=== PATIENT | male | born 1980 | race Caucasian/White ===

== ENCOUNTER 2023-02-22 21:45 | Emergency (ER) | payer MEDICAID ==
[~2023-02-22] VITALS: Ht 180.3 cm; Wt 118.0 kg
[~2023-02-22 21:45] MED LIST: HYOS0.1277 SL; NO HOME MEDS; OXYC-150 PO; SULF1TAB45 PO
[2023-02-22 21:55] VITALS: BP 134/86
[2023-02-23] MEDS ORDERED: TETanus/Pertussis (Acell)/Diphther VAC/PF (Tdap-Adult) 0.5ml syringe IMVAC ONE (06:15)
[2023-02-23] MEDS ORDERED: LIDOcaine 1% W/epiNEPHrine 1:100,000 20ml vial IJ ONE (06:15)
[2023-02-23] MEDS ORDERED: amox tr/potassium clavulanate 875/125mg TAB PO ONE (06:20)
[2023-02-23] MEDS ORDERED: DOXYCYCLINE 100MG CAPSULE PO STA (06:21)
[2023-02-23] MEDS ORDERED: DOXY100C43 PO (06:24)
[2023-02-23] MEDS ORDERED: METR-159 PO (06:24)
[2023-02-23] MEDS ORDERED: metroNIDAZOLE 500mg tablet PO ONE (06:25)
== END 2023-02-23 07:30 | disposition home or self-care (01) ==
LOC: ER 21:46
DX: S51.811A Laceration without foreign body of right forearm, initial encounter (principal); S61.011A Laceration without foreign body of right thumb without damage to nail, initial encounter; Z87.81 Personal history of (healed) traumatic fracture; Z85.038 Personal history of other malignant neoplasm of large intestine; Z79.2 Long term (current) use of antibiotics; Z79.899 Other long term (current) drug therapy; Z23 Encounter for immunization; W54.0XXA Bitten by dog, initial encounter; Y93.89 Activity, other specified; Y92.89 Other specified places as the place of occurrence of the external cause; Y99.8 Other external cause status
CPT/HCPCS: 12002; 90471; 90715; 99284; A6449

== ENCOUNTER 2023-07-24 02:00 | Emergency (ER) | payer MEDICAID ==
[~2023-07-24] VITALS: Ht 177.8 cm; Wt 102.1 kg
[2023-07-24 02:12] VITALS: BP 145/100; PULSE 118; RESP 18; TEMP 98.5; O2SAT 98
== END 2023-07-24 04:16 | disposition left against medical advice (07) ==
LOC: ER 02:00
DX: K08.89 Other specified disorders of teeth and supporting structures (principal); Z53.21 Procedure and treatment not carried out due to patient leaving prior to being seen by health care provider
CPT/HCPCS: 99281

== ENCOUNTER 2023-07-24 06:24 | Inpatient (IN) | payer MEDICAID ==
[~2023-07-24] VITALS: Ht 180.3 cm; Wt 118.2 kg
[2023-07-24] MEDS ORDERED: normal saline 1000ml 1,000 ML IVB ONE (07:00)
[2023-07-24] MEDS ORDERED: dexamethasone sod phosphate 10mg/ml inj IV STA (07:01)
[2023-07-24] MEDS ORDERED: albuterol 2.5 MG/3 ML nebule NEB ONE (07:05)
[2023-07-24] MEDS ORDERED: ipratropium 0.5 MG/2.5ML nebule IH ONE (07:05)
[2023-07-24 07:31] VITALS: PULSE 109; PULSE 122; RESP 12; RESP 16; O2SAT 100
[2023-07-24] MEDS: levoFLOXACIN-Levaquin 750MG/D5 150 ML IV SCH (08:18)
[2023-07-24 09:00] LABS: ALANINE AMINOTRANSFERASE 54 U/L (12-78); ALBUMIN 3.2 G/DL (3.4-5.0); ALBUMIN/GLOBULIN RATIO 0.6 (1.1-1.5); ALKALINE PHOSPHATASE 107 IU/L (46-116); ANION GAP 11 (8-16); ASPARTATE AMINO TRANSFERASE 25 U/L (10-37); BILIRUBIN,TOTAL 0.7 MG/DL (0.1-1.0); BLOOD UREA NITROGEN 16 MG/DL (7-18); CALCIUM 9.4 MG/DL (8.5-10.1); CHLORIDE 98 MMOL/L (99-107); GLUCOSE 135 MG/DL (70-104); SODIUM 136 MMOL/L (135-145); TOTAL CARBON DIOXIDE 27.2 MMOL/L (24-32); TOTAL PROTEIN 8.6 G/DL (6.4-8.2); eCRCL 63 ML/MIN; eGFR 47 ML/MIN
[2023-07-24 09:03] LABS: BASOPHILS # (AUTO) 0.1 X10'3 (0-0.2); BASOPHILS % (AUTO) 0.4 % (0-1); EOSINOPHILS % (AUTO) 0.3 % (0-6); HEMATOCRIT 44.6 % (42.0-52.0); HEMOGLOBIN 15.4 g/dl (14.0-17.9); LYMPHOCYTES # (AUTO) 1.6 X10'3 (1.1-4.8); LYMPHOCYTES % (AUTO) 11.8 % (21-51); MEAN CORPUSCULAR HEMOGLOBIN 31.3 PG (27.0-31.0); MEAN CORPUSCULAR HGB CONC 34.4 g/dL (33.0-36.5); MEAN CORPUSCULAR VOLUME 90.8 FL (78-98); MEAN PLATELET VOLUME 8.2 FL (7.4-10.4); MONOCYTES # (AUTO) 1.6 X10'3 (0-0.9); MONOCYTES % (AUTO) 11.5 % (2-12); NEUTROPHILS # (AUTO) 10.3 X10'3 (1.8-7.7); PLATELET COUNT 338 X10'3 (140-440); RED BLOOD COUNT 4.91 X10'6 (4.70-6.10); RED CELL DISTRIBUTION WIDTH 12.9 % (11.5-14.5); WHITE BLOOD COUNT 13.6 X10'3 (4.5-11.0)
[2023-07-24 09:08] LABS: MAGNESIUM 2.1 MG/DL (1.5-2.4); PRO BRAIN NATRIURETIC PEPTIDE 84 PG/ML (0-125)
[2023-07-24] MEDS ORDERED: POTASSIUM BICARB 20meq eff tab 20 MEQ TABLET.EFF PO ONE (09:20)
[2023-07-24] MEDS ORDERED: LidoCAINE 2% Topical Jelly 11mL syringe TOP ONE (11:55)
[2023-07-24] MEDS ORDERED: LIDOcaine 2% 10ml TOPICAL JELLY (Urojet) TP ONE (11:55)
[2023-07-24 12:37] LABS: BILIRUBIN,URINE NEGATIVE (Neg); CLARITY,URINE SLIGHTLY CLOUDY (Clear); COLOR,URINE YELLOW (Yellow); GLUCOSE, URINE NEGATIVE (Neg); KETONES,URINE NEGATIVE (Neg); LEUKOCYTE ESTERASE ,URINE NEGATIVE (Neg); NITRITES, URINE NEGATIVE (Neg); OCCULT BLOOD,URINE TRACE-INTACT (Neg); PROTEIN,URINE 30 mg/dl (Neg)
[2023-07-24 12:54] LABS: UA COLLECTION TYPE FOLEY CATH
[2023-07-24 12:58] LABS: HYALINE CASTS >30 /LPF (NEGATIVE)
[2023-07-24 13:00] LABS: COARSE GRANULAR CAST 0-3 /LPF (NEGATIVE)
[2023-07-24 13:01] LABS: CELLULAR CAST 0-4 /LPF (NEGATIVE)
[2023-07-24 13:04] LABS: RBC,URINE 0-2 /HPF (0-2); RENAL CELLS, URINE MODERATE /HPF
[2023-07-24 13:05] LABS: WBC CLUMPS,URINE FEW /HPF (NEGATIVE)
[2023-07-24 13:06] LABS: MUCUS STRANDS MODERATE /LPF (Neg); SQUAMOUS EPITHELIAL CELL,UR FEW /LPF (FEW)
[2023-07-24 13:16] LABS: BACTERIA,URINE FEW /HPF (Neg)
[2023-07-24] MEDS ORDERED: propofol 1000mg/100ml bottle 100 ML IV SCH (13:55)
[2023-07-24] MEDS ORDERED: potassium Cl 40MEQ/1/2NS 520ml 520 ML IV PRN (14:15)
[2023-07-24] MEDS ORDERED: magnesium Cl slow-release 64mg tablet PO PRN (14:15)
[2023-07-24] MEDS ORDERED: magnesium hydroxide 30ml (MOM) UD suspension PO PRN (14:15)
[2023-07-24] MEDS ORDERED: HYDROcodone/acetaminophen 10/325mg tab PO PRN (14:15)
[2023-07-24] MEDS ORDERED: potassium Cl 20 mEq SR tablet PO PRN ×2 (14:15)
[2023-07-24] MEDS ORDERED: acetaminophen 325mg tablet PO PRN ×2 (14:15)
[2023-07-24] MEDS ORDERED: ondansetron/PF 4mg/2ml inj IV PRN (14:15)
[2023-07-24] MEDS ORDERED: magnesium 4gm in 100ml NS 100 ML IV PRN (14:15)
[2023-07-24] MEDS ORDERED: morphine 2 MG/ML inj. syringe IV PRN ×2 (14:15)
[2023-07-24] MEDS ORDERED: HYDROcodone/acetaminophen 5mg/325mg tablet PO PRN (14:15)
[2023-07-24] MEDS ORDERED: mag hydrox/Alum hydrox/simeth 30ml oral suspension PO PRN (14:15)
[2023-07-24] MEDS ORDERED: magnesium 2GM in 50ml NS 50 ML IV PRN (14:15)
[2023-07-24 15:12] LABS: TRIGLYCERIDES 135 MG/DL (20-135)
[2023-07-24] MEDS: normal saline 1000ml 1,000 ML IV SCH (16:30)
[2023-07-24] MEDS ORDERED: iohexol 300mg/ml 100ml inj. ONE (17:46)
[2023-07-24] MEDS: docusate sod 100mg capsule PO SCH (20:00)
[2023-07-24] MEDS: K and/or MAG REPLACEMENT MC SCH (20:03)
[2023-07-24 22:08] LABS: ALANINE AMINOTRANSFERASE 46 U/L (12-78); ALBUMIN 2.7 G/DL (3.4-5.0); ALBUMIN/GLOBULIN RATIO 0.5 (1.1-1.5); ALKALINE PHOSPHATASE 95 IU/L (46-116); ANION GAP 6 (8-16); ASPARTATE AMINO TRANSFERASE 30 U/L (10-37); BILIRUBIN,TOTAL 0.5 MG/DL (0.1-1.0); BLOOD UREA NITROGEN 15 MG/DL (7-18); BUN/CREATININE RATIO 11.4 (10.0-20.0); CALCIUM 9.3 MG/DL (8.5-10.1); CHLORIDE 102 MMOL/L (99-107); CREATININE 1.32 MG/DL (0.60-1.10); GLUCOSE 146 MG/DL (70-104); POTASSIUM 4.6 MMOL/L (3.5-5.1); SODIUM 137 MMOL/L (135-145); TOTAL CARBON DIOXIDE 28.9 MMOL/L (24-32); eCRCL 76 ML/MIN; eGFR 59 ML/MIN
[2023-07-24 23:15] VITALS: BP 124/87; PULSE 86; RESP 16; TEMP 97.2; O2SAT 98
[2023-07-24 23:21] VITALS: RESP 16; O2SAT 98
[2023-07-25] MEDS: normal saline 1000ml 1,000 ML IV SCH ×3 (01:15→20:37)
[2023-07-25 05:45] LABS: APTT 27 SECONDS (22-32); PROTHROMBIN TIME 10.5 SECONDS (9.0-12.0)
[2023-07-25 05:55] LABS: ALANINE AMINOTRANSFERASE 48 U/L (12-78); ALBUMIN 2.4 G/DL (3.4-5.0); ALBUMIN/GLOBULIN RATIO 0.5 (1.1-1.5); ALKALINE PHOSPHATASE 82 IU/L (46-116); ANION GAP 6 (8-16); ASPARTATE AMINO TRANSFERASE 22 U/L (10-37); BILIRUBIN,TOTAL 0.4 MG/DL (0.1-1.0); BLOOD UREA NITROGEN 17 MG/DL (7-18); BUN/CREATININE RATIO 13.4 (10.0-20.0); CALCIUM 8.7 MG/DL (8.5-10.1); CHLORIDE 104 MMOL/L (99-107); CREATININE 1.27 MG/DL (0.60-1.10); GLUCOSE 135 MG/DL (70-104); MAGNESIUM 2.2 MG/DL (1.5-2.4); PHOSPHORUS 3.8 MG/DL (2.3-4.5); SODIUM 137 MMOL/L (135-145); TOTAL CARBON DIOXIDE 26.6 MMOL/L (24-32); TRIGLYCERIDES 126 MG/DL (20-135); eCRCL 79 ML/MIN; eGFR 62 ML/MIN
[2023-07-25 06:00] VITALS: BP 102/61; PULSE 80; RESP 18; TEMP 97.3; O2SAT 97
[2023-07-25 06:15] LABS: BASOPHILS % (AUTO) 0.2 % (0-1); EOSINOPHILS % (AUTO) 0 % (0-6); HEMATOCRIT 37.3 % (42.0-52.0); HEMOGLOBIN 12.9 g/dl (14.0-17.9); LYMPHOCYTES # (AUTO) 1.1 X10'3 (1.1-4.8); LYMPHOCYTES % (AUTO) 7.2 % (21-51); MEAN CORPUSCULAR HEMOGLOBIN 32.5 PG (27.0-31.0); MEAN CORPUSCULAR HGB CONC 34.7 g/dL (33.0-36.5); MEAN CORPUSCULAR VOLUME 93.7 FL (78-98); MEAN PLATELET VOLUME 8.3 FL (7.4-10.4); MONOCYTES # (AUTO) 1.1 X10'3 (0-0.9); MONOCYTES % (AUTO) 7.4 % (2-12); NEUTROPHILS # (AUTO) 12.9 X10'3 (1.8-7.7); NEUTROPHILS % (AUTO) 85.2 % (42-75); PLATELET COUNT 291 X10'3 (140-440); RED BLOOD COUNT 3.98 X10'6 (4.70-6.10); RED CELL DISTRIBUTION WIDTH 13.2 % (11.5-14.5); WHITE BLOOD COUNT 15.1 X10'3 (4.5-11.0)
[2023-07-25] MEDS: K and/or MAG REPLACEMENT MC SCH ×2 (08:00→20:00)
[2023-07-25] MEDS: enoxaparin 40mg/0.4ml syringe SUBCUT SCH (08:00)
[2023-07-25 08:05] VITALS: RESP 18; O2SAT 97
[2023-07-25] MEDS: levoFLOXACIN-Levaquin 750MG/D5 150 ML IV SCH (08:05)
[2023-07-25] MEDS: docusate sod 100mg capsule PO SCH ×2 (08:05→20:00)
[2023-07-25 10:00] VITALS: BP 112/68; PULSE 64; RESP 16; TEMP 97.8; O2SAT 98
[2023-07-25 18:00] VITALS: BP 116/66; PULSE 65; RESP 14; TEMP 98.3; O2SAT 99
[2023-07-25 19:00] VITALS: RESP 18; O2SAT 100
[2023-07-25 22:00] VITALS: BP 107/57; PULSE 75; RESP 18; TEMP 98.9; O2SAT 100
[2023-07-26] MEDS: normal saline 1000ml 1,000 ML IV SCH (05:25)
[2023-07-26 05:57] LABS: APTT 25 SECONDS (22-32)
[2023-07-26 05:59] LABS: INR 0.9 INR
[2023-07-26 06:04] LABS: ALANINE AMINOTRANSFERASE 42 U/L (12-78); ALBUMIN 2.2 G/DL (3.4-5.0); ALBUMIN/GLOBULIN RATIO 0.6 (1.1-1.5); ALKALINE PHOSPHATASE 76 IU/L (46-116); ANION GAP 5 (8-16); ASPARTATE AMINO TRANSFERASE 20 U/L (10-37); BILIRUBIN,TOTAL 0.2 MG/DL (0.1-1.0); BLOOD UREA NITROGEN 19 MG/DL (7-18); BUN/CREATININE RATIO 16.2 (10.0-20.0); CALCIUM 8.1 MG/DL (8.5-10.1); CHLORIDE 106 MMOL/L (99-107); CREATININE 1.17 MG/DL (0.60-1.10); GLUCOSE 99 MG/DL (70-104); PHOSPHORUS 3.4 MG/DL (2.3-4.5); POTASSIUM 4.3 MMOL/L (3.5-5.1); SODIUM 140 MMOL/L (135-145); TOTAL PROTEIN 6.2 G/DL (6.4-8.2); eCRCL 86 ML/MIN; eGFR 68 ML/MIN
[2023-07-26 06:23] LABS: BASOPHILS # (AUTO) 0.1 X10'3 (0-0.2); BASOPHILS % (AUTO) 0.7 % (0-1); EOSINOPHILS % (AUTO) 0.4 % (0-6); HEMATOCRIT 37.6 % (42.0-52.0); LYMPHOCYTES # (AUTO) 2.2 X10'3 (1.1-4.8); LYMPHOCYTES % (AUTO) 21.7 % (21-51); MEAN CORPUSCULAR HGB CONC 34.7 g/dL (33.0-36.5); MEAN CORPUSCULAR VOLUME 95.1 FL (78-98); MEAN PLATELET VOLUME 8.1 FL (7.4-10.4); MONOCYTES # (AUTO) 0.6 X10'3 (0-0.9); MONOCYTES % (AUTO) 6.1 % (2-12); NEUTROPHILS # (AUTO) 7.1 X10'3 (1.8-7.7); NEUTROPHILS % (AUTO) 71.1 % (42-75); PLATELET COUNT 281 X10'3 (140-440); RED BLOOD COUNT 3.96 X10'6 (4.70-6.10); RED CELL DISTRIBUTION WIDTH 13.2 % (11.5-14.5)
[2023-07-26 07:25] VITALS: BP 100/55; PULSE 63; RESP 16; TEMP 97.7; O2SAT 98
[2023-07-26] MEDS: enoxaparin 40mg/0.4ml syringe SUBCUT SCH (08:00)
[2023-07-26] MEDS: levoFLOXACIN-Levaquin 750MG/D5 150 ML IV SCH (08:28)
[2023-07-26] MEDS: docusate sod 100mg capsule PO SCH (08:28)
[2023-07-26] MEDS: K and/or MAG REPLACEMENT MC SCH (08:29)
[2023-07-26 08:32] VITALS: RESP 16
[2023-07-26 10:00] VITALS: BP 89/54; PULSE 79; RESP 15; TEMP 97.4; O2SAT 97
[2023-07-26] MEDS ORDERED: LEVO750T68 PO (11:07)
[2023-07-27] MEDS ORDERED: levoFLOXACIN 750MG TABLET PO SCH (11:00)
== END 2023-07-26 14:02 | disposition home or self-care (01) | DRG 113 ==
LOC: ER 06:24 → UNDOADMIN 14:18 → ED HOLD 14:18 → ORTHO 4S 23:23
PROVIDERS: ADMIT Internal Medicine; ATTEND Internal Medicine
PROC: B92 Imaging, Ear, Nose, Mouth and Throat, Computerized Tomography (CT Scan) (ICD-10-PCS; principal; 2023-07-24)
PROC: B92 Imaging, Ear, Nose, Mouth and Throat, Computerized Tomography (CT Scan) (ICD-10-PCS; 2023-07-24)
PROC: B92 Imaging, Ear, Nose, Mouth and Throat, Computerized Tomography (CT Scan) (ICD-10-PCS; 2023-07-24)
DX: H66.93 Otitis media, unspecified, bilateral (principal); N17.9 Acute kidney failure, unspecified; E86.0 Dehydration; E87.6 Hypokalemia; F17.210 Nicotine dependence, cigarettes, uncomplicated; Z20.822 Contact with and (suspected) exposure to COVID-19; J01.90 Acute sinusitis, unspecified; Z88.0 Allergy status to penicillin; Z80.0 Family history of malignant neoplasm of digestive organs
CPT/HCPCS: 36415; 70486; 70487; 70491; 71045; 80053; 81001; 83605; 83735; 83880; 84100; 84145; 84478; 84484; 85025; 85610; 85730; 87040; 87081; 87088; 87811; 94760; 99285; A6258; G0378; J1100; J1956; J3490; J7030; Q9967